=== PATIENT | female | born 1960 | race African-American/Black ===

== ENCOUNTER 2016-04-27 09:35 | Observation (INO) ==
--- NOTE | 2016-04-27 09:54 | Emergency Department Note ---
Disposition Clinical Impression: Chest pain Qualifiers: Chest pain type: unspecified Qualified Code(s): R07.9 - Chest pain, unspecified Disposition: Admitted As Inpatient Condition: Good Referrals: Obie Beasley MD [Primary Care Provider] - Forms: ED Satisfaction Letter Time of Disposition: 12:40 General Adult HPI - General Chief complaint: ED Headache Stated complaint: "my BP is up" Time Seen by Provider: 04/27/16 09:48 Source: patient Limitations: no limitations Nursing Notes Reviewed: Yes Vital Signs Reviewed: Yes - History of Present Illness HPI Narrative: Patient is a 55-year-old female with past medical history of hypertension, diabetes, GERD, history of chest pain. I seen this patient in the past and she had the same presentation in March. She presents today with right-sided chest pain that is the same as previous chest pain that she experienced at previous visit. Her cardiac workup was negative and she followed up with cardiology. Patient states that she saw Dr. Shelby on Wednesday and has been set up with an echocardiogram and stress test. She has not had these tests yet. Today, she states that she has right-sided chest pain, it is reproducible when pressing on her chest, it sharp in nature and usually occurs with rest. Does not occur during exertion. She also has complaints of a headache that is right-sided. No current numbness, tingling, weakness. Denies any nausea, vomiting, fevers, abdominal pain. She also states that she had a right upper quadrant ultrasound last week that was negative for any abnormalities. Patient has a separate complaint of high blood pressure readings. Her blood pressure home as been in the 140s over 80s that she believes that this is "too high. "She was started on metoprolol last week and is currently on losartan as well. She is a log with her of her blood pressures and they have all been between 110s to 140s over 70s to 80s. Pain Scale: 7 - Related Data Allergies Allergy/AdvReac Type Severity Reaction Status Date / Time Penicillins [PCN] Allergy Hives Verified 04/17/16 13:23 Constitutional: Denies: fever, chills Eyes: Denies: eye pain, eye discharge ENT ED: Denies: ear pain, throat pain Cardiovascular: Reports: chest pain. Denies: palpitations, dyspnea on exertion Respiratory: Denies: cough, dyspnea, wheezes Gastrointestinal: Denies: abdominal pain, nausea, diarrhea Genitourinary: Denies: urgency, dysuria, frequency Musculoskeletal: Denies: back pain, neck pain Integumentary: Denies: rash, abrasion Neurological: Reports: headache. Denies: weakness, numbness, paresthesias Psychiatric: Denies: anxiety, depression Past Medical History - Past Medical History Attestation: Yes The following information was validated with the patient. Source: patient Medical history: Reports: hypertension, migraine, other Surgical history: Reports: no surgical history Psychiatric history: Reports: no psych history POWDERED METAL SUPERVISOR history: Reports: no POWDERED METAL SUPERVISOR history - Social History Smoking Status: Current some day smoker Smokeless Tobacco Status: No Alcohol use: Reports: none Drug use: Reports: none Physical Exam - General Limitations: no limitations General appearance: alert, in no apparent distress - Head Head exam: atraumatic, normocephalic, normal inspection - Eye Eye exam: Present: normal appearance, PERRL, EOMI - ENT ENT exam: normal exam, normal oropharynx, mucous membranes moist - Neck Neck exam: Present: normal inspection, full ROM, trachea midline, tenderness ( All tenderness of bilateral trapezius muscles) - Chest Chest inspection: Present: normal inspection, symmetric chest wall rise, tenderness (Tenderness along costovertebral angles bilaterally that reproduces patient's chest pain) - Respiratory Respiratory exam: Present: normal lung sounds bilaterally. Absent: respiratory distress, wheezes, stridor - Cardiovascular Cardiovascular exam: Present: regular rate, normal rhythm, normal heart sounds - Abdominal Exam Abdominal exam: Present: soft, Non-Tender. Absent: tenderness, distention, guarding, rebound, rigidity - Extremities Exam Extremities exam: Present: normal inspection, full ROM. Absent: tenderness, pedal edema - Back Exam Back exam: Present: normal inspection, full ROM. Absent: tenderness - Neurological Exam Neurological exam: Present: alert, oriented X3, CN II-XII intact. Absent: motor sensory deficit - Psychiatric Psychiatric exam: Present: normal affect, normal mood - Skin Skin exam: Present: warm, dry, intact, normal color Course Course Narrative: Patient mildly hypertensive and 140s over 80s on my exam. The rest of the vitals were within normal limits. Physical exam shows right-sided chest pain that is reproduced with palpation. Otherwise, the rest of the physical exam was fairly benign. Patient is anxious on exam. Will perform cardiac workup. However, I think that most of her symptoms are associated with her anxiety. She has follow-up with cardiology andstress and echo set up. 12:38 workup was negative today. Troponin negative. EKG shows normal sinus rhythm with no acute changes. Chest x-ray negative for any acute process. Patient was reevaluated and offered admission. She said that she did not feel called for going home. I spoke with the hospitalist and the patient has been accepted for chest pain rule out. She refused to try any nitroglycerin for chest pain. She only wanted to take Toradol and aspirin at this time. Vital Signs Temperature 98.7 F 04/27/16 09:42 Pulse Rate 86 04/27/16 09:42 Respiratory Rate 16 04/27/16 09:42 Blood Pressure 146/67 04/27/16 09:42 O2 Sat by Pulse Oximetry 99 04/27/16 09:42 Temperature 98.7 F 04/27/16 09:42 Pulse Rate 62 04/27/16 12:28 Respiratory Rate 18 04/27/16 12:28 Blood Pressure 142/70 04/27/16 12:28 O2 Sat by Pulse Oximetry 100 04/27/16 12:28 Oxygen Delivery Oxygen Delivery Room Air Medical Decision Making - MDM Narrative Medical decision making narrative: I examined this patient and my medical decision-making was reviewed with the NUCLEAR PLANT EQUIPMENT OPERATOR/PA/Advanced Practice Nurse/Resident Physician. I agree with the documented findings, disposition and treatment plan as described except to the extent set forth below. Patient presents today and was seen by Dr. Ta and myself, reviewed his evaluation management plan, supervise care the patient's stay. Patient's had some chest pain she is also to apply pain that comes and goes some abdominal pain that comes and goes multiple complaints. She has had costochondritis in the past for cardiology last week and a set up with a stress test. She said this feels very similar. She has had no sweats and no back pain she has had no diaphoresis no arm pain. Were given her Toradol she said that worked well last time during cardiac workup on her period and then reassess. She has no focal deficits on neurologic exam I do not think she needs a CT were not reassess her once her labs are back and determine best approach. I think she may be O to go home and follow up with a stress test as previously directed since she just saw cardiology but will leave that up to her once all her labs are back I will make a mutual decision. She is in agreement with this plan. Patient mildly hypertensive and 140s over 80s on my exam. The rest of the vitals were within normal limits. Physical exam shows right-sided chest pain that is reproduced with palpation. Otherwise, the rest of the physical exam was fairly benign. Patient is anxious on exam. Will perform cardiac workup. However, I think that most of her symptoms are associated with her anxiety. She has follow-up with cardiology andstress and echo set up. 12:38 workup was negative today. Troponin negative. EKG shows normal sinus rhythm with no acute changes. Chest x-ray negative for any acute process. Patient was reevaluated and offered admission. She said that she did not feel called for going home. I spoke with the hospitalist and the patient has been accepted for chest pain rule out. She refused to try any nitroglycerin for chest pain. She only wanted to take Toradol and aspirin at this time. Chest X-Ray 04/27/16 10:02 IMPRESSION: No evidence of acute disease. D/ / Ortiz Nunes MD / Ortiz Nunes MD Interpreting Provider: Ortiz Nunes MD 1201 hrs.: Patient's labs look good we talked her about going home which she does not want to do, having a repeat troponin and turn results that. She like to be admitted to the hospital. I think is reasonable. Chest pain rule out on her and then everything looks good she can probably do close follow-up with primary care. We will speak with the hospitalist she is in agreement with this plan. Impression is chest pain atypical, rule out ACS. - Medical Records Medical records reviewed: Yes I reviewed the patient's medical records. - Lab Data Lab results reviewed: Yes I reviewed the patient's lab results. Result diagrams: 04/27/16 10:28 04/27/16 10:28 Lab Results 04/27/16 04/27/16 04/27/16 Range/Units 10:28 10:28 10:28 WBC 3.4 L (4.3-11.1) K/mcL RBC 4.78 (3.82-4.97) M/mcL Hgb 13.9 (11.5-15.4) g/dL Hct 43.5 (35.3-44.9) % MCV 91.0 (83.0-100.0) fL MCH 29.1 (28.0-33.3) pg MCHC 32.0 (31.6-35.5) g/dL RDW 12.9 (11.5-14.5) % Plt Count 327 (140-400) K/mcL MPV 9.3 L (9.4-12.4) fL Immature Gran % 0.3 (0-4) % Seg Neutrophils % 59.6 % Lymphocytes % 31.5 % Monocytes % 7.1 % Eosinophils % 0.6 % Basophils % 0.9 % Neutrophils # 2.0 (1.6-8.9) K/mcL Lymphocytes # 1.1 (0.6-4.6) K/mcL Monocytes # 0.2 (0.0-1.3) K/mcL Eosinophils # 0.0 (0.0-0.6) K/mcL Basophils # 0.0 (0.0-0.2) K/mcL PT 11.8 (9.4-12.1) Seconds INR 1.1 APTT 35.1 (26.0-36.0) Seconds Sodium 144 (136-145) mEq/L Potassium 3.4 L (3.5-4.5) mEq/L Chloride 103 (98-109) mEq/L Carbon Dioxide 31 H (19-29) mEq/L BUN 13 (7-20) mg/dL Creatinine 0.77 (0.57-1.11) mg/dL Est GFR ( Amer) > 60 (> 60) Est GFR (Non-Af Amer) > 60 (> 60) BUN/Creatinine Ratio 17 (6-26) Glucose 89 (70-99) mg/dL Calculated Osmolality 298 (280-300) Calcium 9.2 (8.6-10.8) mg/dL Troponin I (0-0.03) ng/mL 04/27/16 Range/Units 10:28 WBC (4.3-11.1) K/mcL RBC (3.82-4.97) M/mcL Hgb (11.5-15.4) g/dL Hct (35.3-44.9) % MCV (83.0-100.0) fL MCH (28.0-33.3) pg MCHC (31.6-35.5) g/dL RDW (11.5-14.5) % Plt Count (140-400) K/mcL MPV (9.4-12.4) fL Immature Gran % (0-4) % Seg Neutrophils % % Lymphocytes % % Monocytes % % Eosinophils % % Basophils % % Neutrophils # (1.6-8.9) K/mcL Lymphocytes # (0.6-4.6) K/mcL Monocytes # (0.0-1.3) K/mcL Eosinophils # (0.0-0.6) K/mcL Basophils # (0.0-0.2) K/mcL PT (9.4-12.1) Seconds INR APTT (26.0-36.0) Seconds Sodium (136-145) mEq/L Potassium (3.5-4.5) mEq/L Chloride (98-109) mEq/L Carbon Dioxide (19-29) mEq/L BUN (7-20) mg/dL Creatinine (0.57-1.11) mg/dL Est GFR ( Amer) (> 60) Est GFR (Non-Af Amer) (> 60) BUN/Creatinine Ratio (6-26) Glucose (70-99) mg/dL Calculated Osmolality (280-300) Calcium (8.6-10.8) mg/dL Troponin I 0.00 (0-0.03) ng/mL - Radiology Data Radiology results reviewed: Yes I reviewed the patient's radiology results. Chest X-Ray 04/27/16 10:02 IMPRESSION: No evidence of acute disease. D/ / Ortiz Nunes MD / Ortiz Nunes MD Interpreting Provider: Ortiz Nunes MD - EKG Data EKG #1 EKG attestation: Yes I reviewed and interpreted this EKG. EKG results narrative: There were 2016 at 10:00. Rate 67. QRS duration 95. QTC 387. Normal sinus rhythm. Normal axis. No acute ST elevation or depression. Unchanged from previous EKG on 04/19/2016 Alyssa - Alyssa Situation: Demographics, MOA Background: Presenting Complaint, Relevant PMH, Meds, & Allergies Assessment: Vital Signs, Course and respsone to treatment, Exam Concerns, Patient/Family Expectation, Pertinant Lab Results, Outstanding Labs Recommendation: Barrier(s) to disposition, Recommendation based on pending studies, treatments, or consults Alyssa Report Given to: Dr. Satish Shah Repor Time: 12:40
[2016-04-27] MEDS ORDERED: Ketorolac 30 MG/ML VIAL IVP ONE (10:03)
[2016-04-27] MEDS ORDERED: Aspirin 325 MG TABLET PO ONE (10:07)
[2016-04-27 10:39] LABS: Basophils % 0.9 %; Eosinophils % 0.6 %; Hematocrit 43.5 % (35.3-44.9); Hemoglobin 13.9 g/dL (11.5-15.4); Immature Granulocytes % 0.3 % (0-4); Lymphocytes # 1.1 K/mcL (0.6-4.6); Lymphocytes % 31.5 %; Mean Corpuscular Hemoglobin 29.1 pg (28.0-33.3); Mean Platelet Volume 9.3 fL (9.4-12.4); Monocytes # 0.2 K/mcL (0.0-1.3); Monocytes % 7.1 %; Platelet Count 327 K/mcL (140-400); Red Blood Count 4.78 M/mcL (3.82-4.97); Red Cell Distribution Width 12.9 % (11.5-14.5); Segmented Neutrophils % 59.6 %
[2016-04-27 10:41] LABS: INR 1.1; Prothrombin Time 11.8 Seconds (9.4-12.1)
[2016-04-27 10:43] LABS: Activated Partial Thrombo Time 35.1 Seconds (26.0-36.0)
[2016-04-27 10:47] LABS: BUN/Creatinine Ratio 17 (6-26); Blood Urea Nitrogen 13 mg/dL (7-20); Calcium 9.2 mg/dL (8.6-10.8); Carbon Dioxide 31 mEq/L (19-29); Chloride 103 mEq/L (98-109); Glucose 89 mg/dL (70-99); Osmolality,Calculated 298 (280-300); Potassium 3.4 mEq/L (3.5-4.5); Sodium 144 mEq/L (136-145); eGFR For African Americans > 60 (> 60); eGFR For Non-African Americans > 60 (> 60)
[2016-04-27] MEDS ORDERED: Acetaminophen 325 MG TABLET PO ONE (12:52)
[2016-04-27 13:48] LABS: Bilirubin,Urine Negative (Negative); Blood,Urine Negative (Negative); Clarity,Urine Clear (Clear); Color,Urine Yellow (Yellow); Glucose,Urine (UA) Normal (Normal); Ketones,Urine Negative (Negative); Leukocyte Esterase,Urine Negative (Negative); Nitrite,Urine Negative (Negative); Protein,Urine Negative (Neg-Trace); Specific Gravity,Urine 1.005 (1.010-1.025); Urobilinogen,Urine Normal (Normal)
[2016-04-27] MEDS ORDERED: Naloxone 0.4 MG/ML INJ IVP PRN (15:14)
[2016-04-27] MEDS ORDERED: Ondansetron 4 MG/2 ML VIAL IVP PRN (15:14)
[2016-04-27] MEDS ORDERED: Mag Hydrox/Al Hydrox/Simeth 30 ML UDC PO PRN (15:14)
[2016-04-27] MEDS ORDERED: MOM Conc 10 ML UD.LIQ PO PRN (15:14)
[2016-04-27] MEDS ORDERED: Acetaminophen 325 MG TABLET PO PRN (15:14)
--- NOTE | 2016-04-27 15:29 | Internal Med History&Physical ---
<Jesika Christiansen Manuel - Last Filed: 04/27/16 18:07> Date of Encounter: 04/27/16 Time of Encounter: 14:30 Assessment and Plan (1) Right-sided chest wall pain Current visit: Yes Status: Acute Pt reports onset of R upper chest pain with radiation to R mid back and scapula and R lateral ribs on or about 04/12/16. She denies any known injury other than ' maybe I worked out too hard at [employer] a couple of days before." No cough or fever. Tender to palpation, not worse with movement or deep inspiration. Chest xray is negative for active disease. Today is her 3rd visit to the ED for the same. Troponin was negative. This is most likely musculoskeletal chest pain and not ACS, but will continue to monitor and pt can have outpt workup with Dr Shelby as scheduled. Monitor labs Pain control Telemetry (2) GERD (gastroesophageal reflux disease) Current visit: Yes Status: Chronic Pt reports epigastric pain that radiates into her mid chest. She describes it as "indigestion" and states that it feels like a gnawing feeling and pressure. She reports early satiety and bloated feeling. Takes Omeprazole 20mg BID normally. Will try Protonix 40mg IV while she is here. Epigastric area is tender to palpation. She has never had a scope, nor has she seen GI. Outpatient referral to GI Qualifiers: Esophagitis presence: esophagitis presence not specified Qualified Code(s) : K21.9 - Gastro-esophageal reflux disease without esophagitis (3) HTN (hypertension) Current visit: Yes Status: Chronic Continue home medications Monitor VS daily Qualifiers: Hypertension type: essential hypertension Qualified Code(s): I10 - Essential (primary) hypertension Internal Medicine - H&P: HPI Chief complaint: R chest pain x 2 weeks Admitted From: Home Plans for Post Hospital Care: Home History of present illness: Ms. Paul is a 55 year old female with history of HTN and GERD, who presents to ED today for 3rd visit since the for the same symptoms. Pt has R chest pain and tenderness, also epigastric pain. ONset of symptoms on or about . Pt denies known injury, but states that she was working out at [employer] a few days before the onset of the R chest pain. Troponin 0.00 ng/dl today and chest xray shows that lungs are clear, heart and mediastinum are normal size and unchanged from prior exams. There is no focal consolidation and no acute disease. Pt denies cough or fever. She states that the pain radiates around laterally to mid back and R shoulder blade and sometimes into R shoulder. Pain is reproduceable with palpation to R upper chest and is not worsened by movement or deep inspiration. Lungs are clear ant and post. Pt also reports intermittent epigastric pressure that happens daily. She describes it as gnawing and rates it 5/10. It radiates up into her chest and she denies any change with food. Pain is relieved by sitting up and drinking water or belching. She denies any n/v/d. She reports early satiety at times. Past Med Surg Social Fam HX - Past Medical History Medical history: hypertension, migraine, other Psychiatric history: no psych history - Past Surgical History Surgical History: no surgical history - Social History Smoking Status: Current some day smoker Smokeless Tobacco Status: No Alcohol use: none Drug use: none - Family History Mother Hx Family Endocrine Disorder: Yes (DM) Internal Medicine - H&P: Meds Aspirin [Lo-Dose Aspirin EC] 81 mg PO DAILY 04/27/16 [History] Losartan Potassium [Losartan Potassium] 100 mg PO DAILY 04/27/16 [History] Metoprolol XL (24 HR) Succ [Toprol Xl] 50 mg PO DAILY 04/27/16 [History] [place]-3/Dha/Epa/Fish Oil [Fish Oil 1,000 mg Softgel] 1,000 mg PO DAILY 04/27/16 [History] Omeprazole [PriLOSEC] 20 mg PO BID 04/27/16 [History] Oxygen 2 l .ROUTE AD 04/27/16 [History] Ropinirole [Requip] 0.25 mg PO HS 04/27/16 [History] Torsemide [Demadex] 20 mg PO DAILY 04/27/16 [History] Allergies Penicillins [PCN] Allergy (Verified 04/17/16 13:23) Hives All Systems PM: A 10-system review of systems was performed and is negative for pertinent findings except as documented above in the HPI. - Constitutional Constitutional: no anorexia, no chills, no fever(s), no weight gain, no weight loss - EENT Nose, mouth and throat: no hoarseness, no post-nasal drip, no sinus pain, no sinus pressure, no sore throat - Cardiovascular Cardiovascular ROS IM: chest pain, no dyspnea, no edema, no lightheadedness, no syncope - Respiratory Respiratory: no cough, no dyspnea on exertion, no wheezing, no pain on inspiration, no chest congestion, no excessive phlegm production - Gastrointestinal Gastrointestinal: abdominal pain, early satiety, heartburn, no diarrhea, no nausea, no vomiting - Genitourinary Genitourinary: no dysuria, no flank pain - Musculoskeletal Musculoskeletal ROS IM: back pain, no limited range of motion - Constitutional Vitals: Temp Pulse Resp BP Pulse Ox 98.0 F 58 18 145/65 97 04/27/16 14:03 04/27/16 14:03 04/27/16 14:03 04/27/16 14:03 04/27/16 14:03 General appearance: Present: cooperative, A&O X 3, pleasant, no acute distress, answers questions appropriately - Head Head exam: Present: atraumatic, normal inspection - ENT ENT exam: Present: mucous membranes moist, normal exam - Neck Neck exam general surgery: Present: full ROM, normal inspection. Absent: lymphadenopathy - Respiratory Respiratory exam: Present: chest wall tenderness, CTAB. Absent: accessory muscle use, decreased breath sounds, respiratory distress, rhonchi, wheezes - Cardiovascular Cardiovascular exam: Present: RRR, +S1, +S2. Absent: diastolic murmur, distant heart sounds, systolic murmur, tachycardia - GI/Abdominal GI/Abdominal exam: Present: distended, normal bowel sounds, soft, tenderness. Absent: mass - Extremities Exam Extremities exam: Present: full ROM, normal inspection, warm. Absent: pedal edema Internal Med - H&P Results - Labs CBC & Chem 7: 04/27/16 10:28 04/27/16 10:28 <Leena Benavides E - Last Filed: 04/27/16 18:40> Date of Encounter: 04/27/16 Internal Medicine - H&P: HPI History of present illness: Ms. Paul is a 55 year old female All Systems PM: A 10-system review of systems was performed and is negative for pertinent findings except as documented above in the HPI. - Constitutional Vitals: Temp Pulse Resp BP Pulse Ox 98.0 F 58 18 145/65 97 04/27/16 14:03 04/27/16 14:03 04/27/16 14:03 04/27/16 14:03 04/27/16 14:03 Internal Med - H&P Results - Labs CBC & Chem 7: 04/27/16 10:28 04/27/16 10:28 - Attending Attestation I come in, reviewed all laboratory and imaging data. I agree with findings, documentation, treatment and disposition of ANOOP Christiansen as described above. 55-year-old female who presents with right-sided chest pain and reflux symptoms. First troponin negative. EKG showed no acute findings. Chest x-ray was negative. Physical examination was unremarkable. CWill restart patient on IV Protonix. Will reassess her reflux symptoms in the morning. No need for any ACS workup including stress test. Patient can have stress test and echocardiogram as outpatient per Dr Shelby orders.
[2016-04-27] MEDS: *HR* HYDROcodone/Acet 5/325 mg TABLET PO PRN ×2 (16:14→21:09)
--- NOTE | 2016-04-27 16:44 | Electrocardiograph Report ---
[employer] [facility] Test Date: 2016-04-27 Pat Name: Sangita Paul Department: 104 Room: 3B48 Gender: F Animal Care Assistant: : 1960 Requested By: Harjti Vences Order Number: [id number] Reading MD: Delano Colin DO Measurements Intervals Perry Rate: 67 P: 57 SD: 166 QRS: 76 QRSD: 95 T: 15 QT: 371 QTc: 387 Interpretive Statements SINUS RHYTHM INCOMPLETE RIGHT BUNDLE BRANCH BLOCK Electronically Signed On 04-27-2016 16:43:15 EST by Delano Colin DO
[2016-04-27] MEDS ORDERED: rOPINIRole 0.25 MG TABLET PO SCH (21:00)
[2016-04-28] MEDS: *HR* HYDROcodone/Acet 5/325 mg TABLET PO PRN ×3 (01:11→13:51)
[2016-04-28 04:54] LABS: Basophils % 0.7 %; Eosinophils # 0.1 K/mcL (0.0-0.6); Eosinophils % 2.6 %; Hematocrit 40.9 % (35.3-44.9); Hemoglobin 13.2 g/dL (11.5-15.4); Immature Granulocytes % 0.2 % (0-4); Lymphocytes # 2.3 K/mcL (0.6-4.6); Lymphocytes % 53.8 %; Mean Corpuscular HGB Conc 32.3 g/dL (31.6-35.5); Mean Corpuscular Hemoglobin 29.3 pg (28.0-33.3); Mean Corpuscular Volume 90.7 fL (83.0-100.0); Mean Platelet Volume 9.4 fL (9.4-12.4); Monocytes # 0.4 K/mcL (0.0-1.3); Monocytes % 9.2 %; Neutrophils # 1.4 K/mcL (1.6-8.9); Platelet Count 312 K/mcL (140-400); Red Blood Count 4.51 M/mcL (3.82-4.97); Red Cell Distribution Width 12.8 % (11.5-14.5); Segmented Neutrophils % 33.5 %
[2016-04-28 05:18] LABS: BUN/Creatinine Ratio 21 (6-26); Blood Urea Nitrogen 15 mg/dL (7-20); Calcium 8.9 mg/dL (8.6-10.8); Carbon Dioxide 30 mEq/L (19-29); Chloride 101 mEq/L (98-109); Glucose 94 mg/dL (70-99); Osmolality,Calculated 293 (280-300); Potassium 3.3 mEq/L (3.5-4.5); Sodium 141 mEq/L (136-145); eGFR For African Americans > 60 (> 60); eGFR For Non-African Americans > 60 (> 60)
[2016-04-28] MEDS ORDERED: Metoprolol XL (24 HR) Succ 50 MG TAB.ER.24H PO SCH (09:00)
[2016-04-28] MEDS ORDERED: Aspirin Enteric Coated 81 MG Tablet PO SCH (09:00)
[2016-04-28] MEDS ORDERED: Torsemide 20 MG TABLET PO SCH (09:00)
[2016-04-28] MEDS ORDERED: Pantoprazole 40 MG VIAL IVP SCH (09:00)
--- NOTE | 2016-04-28 11:45 | ECHO - Doppler Report ---
Echocardiogram Name: Sangita Paul Date of Study: 04/28/2016 Date: 1960 Ht: 59.0 in Medical Record#: [id number] Age: 55 Wt: 179.0 lb Gender: Female BSA: 1.76 Order #: [id number] Location: [facility] Room #: [id number] Reading Physician: Fariba Ca DO Quill Picking Machine Operator: Sanford Gtz RN Ordering Physician: Christopher Schreiber MD Primary Physician: Obie Beasley MD Indications: Chest pain Impressions: LVEF 60%. Normal left ventricular size and systolic function. There is evidence of mild diastolic dysfunction of the left ventricle. Normal right ventricular size and function. Mild mitral regurgitation. Mild pulmonic regurgitation. No pulmonary hypertension. Left Ventricular Wall Motion: Rest Echo Findings All wall segments showed normal motion. Findings: Study Quality * Technically adequate exam. ECG Findings * Normal sinus rhythm. Left Ventricle * LVEF 60%. * Normal LV chamber size, wall thickness and function. * Moderate left ventricular diastolic dysfunction. Mitral Valve * Normal mitral valve structure. * No mitral stenosis. * Mild mitral regurgitation. Aortic Valve * No aortic regurgitation. * Trileaflet aortic valve. * Normal aortic valve structure. * No aortic stenosis. Tricuspid Valve * Tricuspid valve not well visualized. * No tricuspid regurgitation. * Estimated RA pressure is 3 mmHg. Pulmonic Valve * Pulmonic valve is not well visualized. * No pulmonic stenosis. * Mild pulmonic regurgitation. Pulmonary Artery * Pulmonary artery not well visualized. Right Ventricle * Normal right ventricular structure and function. Right Atrium * Normal right atrial size. Left Atrium * Mildly dilated left atrium. Interatrial Septum * No evidence of PFO by color Doppler. IVC * Normal IVC dimensions and inspiratory collapse. Pericardium * There is no pericardial effusion present. Aorta * Normally sized aortic root. History Hypertension Hypercholesteremia Years 27 Packs 0.5 Measurements: BP: 145/ 59 2D Normal Values IVSd: 1.00 cm 0.6 - 1.0 cm LVIDd: 4.40 cm 3.7 - 5.6 cm LVPWd: 1.00 cm 0.6 - 1.1 cm LVIDs: 2.70 cm 1.5 - 3.6 cm LA: 3.60 cm 2.0 - 4.0cm %FS: 38.60 cm >25 % LVOT Diam: 1.80 cm LA volume: 59 Mitral Valve Peak E:.93 m/sec Peak A:.79 m/sec E/A Ratio:1.2 Peak E' Lat Cedric:8.19 cm/s Peak E' Med Cedric:10.5 cm/s E/E' Lat Ratio:11.4 E/E' Med Ratio:8.9 Updated by Fariba Ca on 04/28/2016 11:38:40 AM electronically signed on 04/28/2016 11:40:55 AM with status of Final [employer] [place]: 1=Normal, 2=Hypokinesis, 3=Akinesis, 4=Dyskinesis, 5=Aneurysmal, 6=Hyperkinetic, X=Not Visualized (Blank)=Missing
--- NOTE | 2016-04-28 11:51 | Discharge Summary ---
Date of Encounter: 04/28/16 Time of Encounter: 09:40 - Discharge Diagnosis (1) Chest pain Priority: Primary Status: Acute Comments: Chest pain is atypical, reproducible and not cardiac EKG, troponin negative ECHO done this a.m with LVEF of 60%, mild diastolic dysfunction, Mild MR, no pulmonary HTN Wall motion is normal Patient may be having fibromyalgia as she has multiple complains of generalized body pains as well as insomina Educated to follow up with PCP Has stress test scheduled as outpatient, encourage to keep Follow up with PCP Qualifiers: Chest pain type: other chest pain Qualified Code(s): R07.89 - Other chest pain; R07.8 - Other chest pain (2) Right-sided chest wall pain Priority: Primary Status: Acute Comments: As above (3) GERD (gastroesophageal reflux disease) Priority: Secondary Status: Chronic Qualifiers: Esophagitis presence: esophagitis presence not specified Qualified Code(s) : K21.9 - Gastro-esophageal reflux disease without esophagitis (4) HTN (hypertension) Priority: Secondary Status: Chronic Qualifiers: Hypertension type: essential hypertension Qualified Code(s): I10 - Essential (primary) hypertension - Discharge Medications Home Medications: Aspirin [Lo-Dose Aspirin EC] 81 mg PO DAILY 04/27/16 [History] Losartan Potassium [Losartan Potassium] 100 mg PO DAILY 04/27/16 [History] Metoprolol XL (24 HR) Succ [Toprol Xl] 50 mg PO DAILY 04/27/16 [History] [place]-3/Dha/Epa/Fish Oil [Fish Oil 1,000 mg Softgel] 1,000 mg PO DAILY 04/27/16 [History] Omeprazole [PriLOSEC] 20 mg PO BID 04/27/16 [History] Oxygen 2 l .ROUTE AD 04/27/16 [History] Ropinirole [Requip] 0.25 mg PO HS 04/27/16 [History] Torsemide [Demadex] 20 mg PO DAILY 04/27/16 [History] Allergies/Adverse Reactions: Allergies Penicillins [PCN] Allergy (Verified 04/17/16 13:23) Hives Procedures/tests Complete & Pending: Procedures Performed prior 72 hours Category Date Time Status EV echocardiogram Stat Y 04/28/16 08:31 Completed Date of admission: 04/27/16 13:26 Primary care physician: Obie Beasley MD Discharging clinician: Christopher Schreiber Anticipated date of discharge: 04/28/16 - Patient Status Disposition: Home, Self-Care Condition: Good Functional capacity at discharge: independent ambulation Overall status at discharge: patient is back to baseline - Discharge Instructions Follow Up With: Obie Beasley MD [Primary Care Provider] - 05/04/16 3:00 pm (Cancelling 15th appointment ) - Diet and Activity Activity: resume usual activities as tolerated Diet: advance to your usual diet Interval History: See below Hospital course: Ms. Paul is a 55 year old female hospitalized for work up of right sides chest pain EKG non-ischemic, IRBBB, chroni Troponin negative VSS ECHO with no wall motion abnormalities Stress test as outpatient Follow up with PCP Resume own home meds Encourage smoking cessation, counselled for 3 minutes Time spent discussing smoking cessation with patient: 3 to 10 minutes - Time Spent with Patient Total time spent providing and/or coordinating discharge services: Less than 30 minutes - Constitutional Vitals: Temp Pulse Resp BP Pulse Ox 98.3 F 60 16 145/59 96 04/28/16 08:04 04/28/16 08:04 04/28/16 08:04 04/28/16 08:04 04/28/16 08:04 General appearance: Present: cooperative, A&O X 3, pleasant, no acute distress, answers questions appropriately - Head Head exam: Present: atraumatic, normocephalic - Eye Eye exam: Present: PERRL, conjuntiva pink, sclera anicteric Pupils: Present: PERRL - Neck Neck exam general surgery: Present: supple, trachea midline. Absent: lymphadenopathy - Respiratory Respiratory exam: Present: CTAB. Absent: accessory muscle use, rales, rhonchi, wheezes - Cardiovascular Cardiovascular exam: Present: RRR, +S1, +S2. Absent: diastolic murmur, gallop, rubs, systolic murmur - GI/Abdominal GI/Abdominal exam: Present: normal bowel sounds, soft, no peritoneal signs. Absent: distended, tenderness - Extremities Exam Extremities exam: Present: warm, radial pulses palpable and symetrical. Absent : calf tenderness, cyanotic, pedal edema - Neurological Exam Neurological exam: Present: CN II-XII intact, oriented X3, no focal deficits. Absent: pronater drift, facial droop, speech deficit - Skin Skin exam: Present: dry, intact
[2016-04-28 12:07] VITALS: BP 139/79
== END 2016-04-28 14:10 | disposition home or self-care (01) ==
LOC: EMEROO 09:35 → 3BNU 09:35
PROVIDERS: ADMIT Nurse Practitioner Family; ATTEND Nurse Practitioner Family